=== PATIENT | male | born 1950 | race Caucasian/White ===

== ENCOUNTER → 2023-05-10 | Outpatient (CLI) | payer BC, MEDICARE, SELFPAY ==
[~2023-05-10] MED LIST: FLOM0.4C39 OR; LORTAB PO; No Historical Meds
== END ==
LOC: M RAD 12:57
PROVIDERS: ATTEND Physician Assistant Medical
DX: M79.661 Pain in right lower leg (principal)

== ENCOUNTER → 2024-04-07 | Outpatient (CLI) | payer OTHER, MEDICARE | LOC: M RAD 12:15 | PROVIDERS: ATTEND Physician Assistant | DX: M79.605 Pain in left leg (principal); R22.42 Localized swelling, mass and lump, left lower limb ==

== ENCOUNTER → 2025-03-04 | Outpatient (REF) | payer MEDICARE ==
[~2025-03-04] MED LIST changes: +OXYB5TAB14 PO; +PHEN1TAB73 PO
[2025-03-04 17:05] LABS: APPEARANCE, URINE HAZY (CLEAR); BACTERIA, URINE AUTO NEGATIVE (NEGATIVE); BILIRUBIN, URINE AUTO NEGATIVE (NEGATIVE); BLOOD, URINE BLOOD NEGATIVE (NEGATIVE); GLUCOSE, URINE (UA) AUTO NEGATIVE (NEGATIVE); KETONE, URINE AUTO NEGATIVE (NEGATIVE); LEUKOCYTE ESTERASE, URINE AUTO TRACE (NEGATIVE); MUCUS, URINE LARGE (NEGATIVE); NITRITE, URINE AUTO NEGATIVE (NEGATIVE); PROTEIN, URINE AUTO NEGATIVE (NEGATIVE); RBC, URINE AUTO 2 /HPF (0-3); SPECIFIC GRAVITY URINE AUTO 1.026 (1.002-1.035); SQUAMOUS EPITHELIAL CELL UR AU 0 /HPF (0-6); UROBILINOGEN, URINE AUTO 0.2 mg/dL (0.0-2.0); WBC, URINE AUTO 5 /HPF (0-3)
== END ==
LOC: M LAB REF 16:00
DX: N39.0 Urinary tract infection, site not specified (principal)

== ENCOUNTER 2025-03-06 15:40 | Emergency (ER) | payer MEDICARE, OTHER ==
[~2025-03-06] VITALS: Ht 185.4 cm; Wt 76.5 kg
[~2025-03-06 15:40] MED LIST changes: -OXYB5TAB14 PO; -PHEN1TAB73 PO
[2025-03-06 16:31] LABS: KETONE, URINE AUTO RFX NEGATIVE (NEGATIVE); LEUKOCYTE ESTERASE UR AUTO RFX NEGATIVE (NEGATIVE); MUCUS, URINE RFX SMALL (NEGATIVE); NITRITE, URINE AUTO RFX NEGATIVE (NEGATIVE); RBC, URINE AUTO RFX 4 /HPF (0-3); SQUAM EPITHELIAL CELL UR AURFX 0 /HPF (0-6); WBC, URINE AUTO RFX 1 /HPF (0-3)
[2025-03-06 17:08] LABS: PLATELET COUNT, AUTOMATED 213 10^3/uL (150-450)
[2025-03-06 17:43] LABS: ALT/SGPT 27 U/L (7.0-40); AST/SGOT 22 U/L (<34); CALCIUM LEVEL 9.0 MG/DL (8.3-10.6); CARBON DIOXIDE LEVEL 27 MMOL/L (20-31); CHLORIDE LEVEL 108 MMOL/L (98-107); CREATININE FOR GFR 0.75 MG/DL (0.70-1.30); GLOMERULAR FILTRATION RATE > 90.0 (>42); POTASSIUM SERUM 3.9 MMOL/L (3.5-5.1); SODIUM LEVEL 144 MMOL/L (136-145)
[2025-03-06] MEDS ORDERED: OXYB5TAB14 PO (21:01)
[2025-03-06] MEDS ORDERED: PHEN1TAB73 PO (21:01)
[2025-03-06] MEDS: PHENAZOPYRIDINE 100 MG TAB PO ONE (21:23)
[2025-03-06 21:26] VITALS: BP 165/76; TEMP 96.7; O2SAT 98
== END 2025-03-06 21:27 | disposition home or self-care (01) ==
LOC: M ED 15:40
DX: N40.1 Benign prostatic hyperplasia with lower urinary tract symptoms (principal); R30.0 Dysuria; Z87.442 Personal history of urinary calculi; M51.369 Other intervertebral disc degeneration, lumbar region without mention of lumbar back pain or lower extremity pain; Z79.899 Other long term (current) drug therapy

== ENCOUNTER → 2025-04-02 | Outpatient (CLI) | payer MEDICARE, OTHER ==
[~2025-04-02] MED LIST changes: +OXYB5TAB14 PO; +PHEN1TAB73 PO
== END ==
LOC: M WUC 13:44
PROVIDERS: ATTEND Nurse Practitioner Family
DX: G89.29 Other chronic pain (principal)

== ENCOUNTER → 2025-04-25 | Outpatient (CLI) | payer OTHER, MEDICARE | LOC: M RAD 12:03 | PROVIDERS: ATTEND Physician Assistant | DX: N40.1 Benign prostatic hyperplasia with lower urinary tract symptoms (principal) ==